=== PATIENT | male | born 1960 | race Caucasian/White ===

== ENCOUNTER → 2018-11-23 | Outpatient (CLI) | payer BC ==
[~2018-11-23] MED LIST: ALBUTEROL INHAL17 GM IH; AMARYL4 MG PO; AMBIEN CR 6.26.25 MG PO; AMPHETAMINE PO; ASPIRIN EC81 M1 PO; ASPIRIN325 PO; BENICAR HCT 401 EAC1 PO; CITRACAL + D C1 EACH PO; CLONAZEPAM 1 MG1 M1 PO; CRESTOR20 MG PO; CYMBALTA60 MG PO; FISHOIL; FLONASE 0.05%50 MCG NS; GLUCOPHAGE1000 MG PO; GUAIFENESIN WI120 ML PO; IBUPROFEN 400400 M1 PO; IBUPROFEN 600600 M1 PO; IBUPROFEN 800800 MG PO; LANTUS SC; LOPRESSOR PO; LUVOX 50MG TABL50 M1 PO; METFORMIN 500500 MG PO; MIRTAZAPINE45 MG PO; NEFAZODONE HCL50 MG PO; NIASPAN PO; NORCO 5-325 TA1 EACH PO; NOVOLOG100 UNIT/1; NOVOLOG100 UNIT/1 SUBQ; OMEPRAZOLE 20 M20 MG PO; PERCOCET 5-3251 EACH PO; PREDNISONE 10 M10 MG PO; PREDNISONE 20 M20 MG PO; PRILOSEC 20 MG20 MG; SULFAZINE EC500 MG PO; TOPROL XL25 MG PO; VALIUM2 MG PO; VICOPROFEN 2001 EACH PO; ZOLOFT 50 MG TA50 M1 PO
== END ==
LOC: RAD 11:08
DX: M47.812 Spondylosis without myelopathy or radiculopathy, cervical region (principal)

== ENCOUNTER → 2019-03-21 | Outpatient (CLI) | payer OTHER | LOC: CAT 14:19 | DX: Z13.6 Encounter for screening for cardiovascular disorders (principal); I25.10 Atherosclerotic heart disease of native coronary artery without angina pectoris; E78.00 Pure hypercholesterolemia, unspecified; Z82.49 Family history of ischemic heart disease and other diseases of the circulatory system ==